=== PATIENT | female | born 1970 | race Caucasian/White ===

== ENCOUNTER 2022-02-11 23:25 | Emergency (ER) | payer MEDICAID ==
--- NOTE | 2022-02-11 23:56 | NUR ---
CALLED TO TRIAGE, NO ANSWER. PT TOLD REGISTRATION SHE WAS LEAVING. LWBS
== END 2022-02-11 23:56 | disposition left against medical advice (07) ==
LOC: MED 23:25
DX: R10.9 Unspecified abdominal pain (principal); Z53.21 Procedure and treatment not carried out due to patient leaving prior to being seen by health care provider